=== PATIENT | female | born 1995 | race Caucasian/White ===

== ENCOUNTER 2017-01-24 18:22 | Emergency (ER) | payer OTHER ==
[~2017-01-24] VITALS: Ht 165.1 cm; Wt 51.0 kg
[2017-01-24 18:35] VITALS: Ht 165.1 cm; Wt 51.0 kg
[2017-01-24] MEDS ORDERED: ACETAMINOPHEN 500 MG TAB PO STA (20:09)
[2017-01-24] MEDS ORDERED: KETOROLAC 30 MG INJ IV STA (20:09)
[2017-01-24] MEDS ORDERED: ONDANSETRON 4 MG INJ IV STA (20:09)
[2017-01-24] MEDS ORDERED: SOD CHLORIDE 0.9% 1,000 ML IV STA (20:09)
[2017-01-24 20:47] LABS: ADD SCAN DIFF NO
[2017-01-24 20:50] LABS: BASOPHILS % 0.2 % (0.0-2.0); HEMATOCRIT 41.6 % (37.0-47.0); HEMOGLOBIN 13.4 g/dl (12.0-16.0); LYMPHOCYTES % 7.8 % (18.0-55.0); MEAN CORPUSCULAR HEMOGLOBIN 28.6 pg (29.0-33.0); MEAN CORPUSCULAR HGB CONC 32.2 g/dl (32.0-37.0); MEAN CORPUSCULAR VOLUME 88.7 fl (72.0-104.0); MEAN PLATELET VOLUME 9.9 fl (7.4-10.4); MONOCYTE # 0.8 10^3/ul (0.3-0.9); MONOCYTES % 6.4 % (0.0-13.0); NEUTROPHILS % 85.3 % (30.0-74.0); PLATELET COUNT 338 10^3/UL (140-415); RED BLOOD COUNT 4.69 10^6/ul (4.20-5.40); RED CELL DISTRIBUTION WIDTH 13.4 % (11.5-14.5); WHITE BLOOD COUNT 12.9 10^3/ul (4.8-10.8)
[2017-01-24] MEDS ORDERED: CEFTRIAXONE 1 GM/50 ML (PMX) 50 ML IVPB ONE (21:00)
[2017-01-24 21:03] LABS: ALBUMIN 4.9 g/dl (3.3-4.9)
[2017-01-24 21:04] LABS: POTASSIUM 4.1 mmol/L (3.5-5.1)
[2017-01-24 21:06] LABS: ALBUMIN/GLOBULIN RATIO 1.19; BILIRUBIN,INDIRECT 0.3 mg/dl (0-1.1); BILIRUBIN,TOTAL 0.3 mg/dl (0.2-1.3); CREATININE 0.7 mg/dl (0.44-1.00)
[2017-01-24 21:07] LABS: CALCIUM 10.3 mg/dl (8.4-10.2)
[2017-01-24 21:59] LABS: ADD UMIC YES; URINE BILIRUBIN (Dip) NEGATIVE (NEGATIVE); URINE BLOOD (Dip) 3+ (NEGATIVE); URINE COLOR LT. YELLOW (YELLOW); URINE GLUCOSE (Dip) NEGATIVE (NEGATIVE); URINE KETONES (Dip) TRACE (NEGATIVE); URINE LEUKOCYTE ESTERASE (Dip) 3+ (NEGATIVE); URINE NITRITE (Dip) POSITIVE (NEGATIVE); URINE TOTAL PROTEIN (Dip) TRACE (NEGATIVE); URINE UROBILINOGEN (Dip) 0.2 E.U./dL (0.1-1.0)
[2017-01-24 22:13] LABS: BACTERIA,URINE FEW; SQUAMOUS EPITHELIAL CELL,UR MODERATE
[2017-01-24] MEDS ORDERED: CEPH-443 PO (22:22)
[2017-01-24] MEDS ORDERED: IBUP-1542 PO (22:22)
[2017-01-24] MEDS ORDERED: PHEN-538 PO (22:22)
--- NOTE | 2017-01-24 22:22 | ERD ---
ER Documentation Chief Complaint Date/Time DATE: 01/24/17 Chief Complaint Right flank pain HPI The patient is a 21-year-old female who presents to the Emergency Department with complaint of right flank pain and dysuria. The patient reports that approximately one week ago she developed dysuria, urinary frequency, urgency hesitancy and hematuria. Several days later, the patient had onset of suprapubic abdominal pressure, which worsened upon urination. Due to her symptoms, the patient decided increase her oral intake. However, despite this, she continued to experience the urinary symptoms. Last night the patient developed right-sided flank pain, with associated nausea, and one episode of nonbilious, nonbloody emesis today. She denies any known fevers or chills. Denies diarrhea. Denies vaginal bleeding or new vaginal discharge. Last menstrual period was 01/17/2017. Denies history of similar symptoms in the past. ROS All systems reviewed and are negative except as per history of present illness. Medications Home Meds Active Scripts Ibuprofen* (Motrin*) 600 Mg Tab, 600 MG PO Q6, #30 TAB Prov:GUILLAUME BANEGAS PA-C 01/24/17 Phenazopyridine Hcl* (Pyridium*) 200 Mg Tab, 200 MG PO TID Y for URINARY PAIN for 2 Days, #6 TAB Prov:GUILLAUME BANEGAS PA-C 01/24/17 Cephalexin* (Keflex*) 500 Mg Capsule, 500 MG PO QID for 10 Days, CAP Prov:GUILLAUME BANEGAS PA-C 01/24/17 Allergies Allergies: Coded Allergies: No Known Allergy (Unverified , 01/24/17) PMhx/Soc Medical and Surgical Hx: pt denies Medical Hx, pt denies Surgical Hx Hx Alcohol Use: No Hx Substance Use: No Hx Tobacco Use: No Smoking Status: Never smoker Physical Exam Vitals Vital Signs Date Time Temp Pulse Resp B/P Pulse Ox O2 Delivery O2 Flow Rate FiO2 01/24/17 22:35 99.6 83 18 106/58 100 Room Air 01/24/17 18:35 100.3 110 20 158/100 100 Physical Exam GENERAL: Well-developed, well-nourished, female, in no acute distress. Nontoxic. Well-appearing. HEENT: Head is normocephalic, atraumatic. No scleral pallor or icterus. Pupils equal, round and reactive to light. Conjunctiva pink. Moist mucous membranes. Clear oropharynx. NECK: Supple. Full range of motion. RESPIRATORY: Lungs are clear to auscultation bilaterally. Equal breath sounds. Normal expiratory effort. CARDIOVASCULAR: Tachycardic. Regular rhythm. No murmurs. GASTROINTESTINAL: Abdomen is soft, non-tender, and non-distended. No guarding, no rebound tenderness. Normal bowel sounds. No tenderness at McBurney's point. FLANK: Right-sided CVA tenderness. No left-sided CVA tenderness. No masses. No swelling. No vesicles. BACK: No midline tenderness. EXTREMITIES: No clubbing, cyanosis, or edema. Normal skin perfusion. Moving all extremities. Muscle tone is normal. No focal swelling or erythema. NEUROLOGIC: The patient is alert, awake, and oriented x 3. Speech is normal. INTEGUMENT: Skin is intact. Warm and dry. No rashes, no petechiae present. PSYCHIATRIC: Cooperative; appropriate. Result Diagram: 01/24/17202801/24/172028 Results 24 hrs Laboratory Tests Test 01/24/17 20:29 01/24/17 21:45 White Blood Count 12.910^3/ul Red Blood Count 4.6910^6/ul Hemoglobin 13.4g/dl Hematocrit 41.6% Mean Corpuscular Volume 88.7fl Mean Corpuscular Hemoglobin 28.6pg Mean Corpuscular Hemoglobin Concent 32.2g/dl Red Cell Distribution Width 13.4% Platelet Count 56227^3/UL Mean Platelet Volume 9.9fl Neutrophils % 85.3% Lymphocytes % 7.8% Monocytes % 6.4% Eosinophils % 0.0% Basophils % 0.2% Nucleated Red Blood Cells % 0.0/100WBC Neutrophils # 11.010^3/ul Lymphocytes # 1.010^3/ul Monocytes # 0.810^3/ul Eosinophils # 0.010^3/ul Basophils # 0.010^3/ul Nucleated Red Blood Cells # 0.010^3/ul Sodium Level 143mmol/L Potassium Level 4.1mmol/L Chloride Level 100mmol/L Carbon Dioxide Level 26mmol/L Anion Gap 21 Blood Urea Nitrogen 14mg/dl Creatinine 0.70mg/dl Glucose Level 98mg/dl Calcium Level 10.3mg/dl Total Bilirubin 0.3mg/dl Direct Bilirubin 0.00mg/dl Indirect Bilirubin 0.3mg/dl Aspartate Amino Transf (AST/SGOT) 20IU/L Alanine Aminotransferase (ALT/SGPT) 17IU/L Alkaline Phosphatase 64IU/L Total Protein 9.0g/dl Albumin 4.9g/dl Globulin 4.10g/dl Albumin/Globulin Ratio 1.19 Lipase 101U/L Urine Color LT. YELLOW Urine Clarity HAZY Urine pH 6.0 Urine Specific Excel <=1.005 Urine Ketones TRACE Urine Nitrite POSITIVE Urine Bilirubin NEGATIVE Urine Urobilinogen 0.2 E.U./dL Urine Leukocyte Esterase 3+ Urine Microscopic RBC 5-10/HPF Urine Microscopic WBC >200/HPF Urine Squamous Epithelial Cells MODERATE Urine Calcium Oxalate Crystals FEW Urine Bacteria FEW Urine Hemoglobin 3+ Urine Glucose NEGATIVE% Urine Total Protein TRACE Current Medications Medications (Trade) Dose Ordered Sig/Angie Route PRN Reason Start Time Stop Time Status Last Admin Dose Admin Sodium Chloride (NS) 1,000 ml @ 1,000 mls/hr Q1H STAT IV 01/24/17 20:09 01/24/17 21:08 DC 01/24/17 20:41 Ondansetron HCl (Zofran Inj) 4 mg ONCE STAT IV 01/24/17 20:09 01/24/17 20:11 DC 01/24/17 20:41 Ketorolac Tromethamine (Toradol) 30 mg ONCE STAT IV 01/24/17 20:09 01/24/17 20:11 DC 01/24/17 20:41 Acetaminophen 1000 mg 1,000 mg ONCE STAT PO 01/24/17 20:09 01/24/17 20:11 DC 01/24/17 20:42 Ceftriaxone Sodium (Rocephin) 50 ml @ 100 mls/hr ONCE ONCE IVPB 01/24/17 21:00 01/24/17 21:29 DC 01/24/17 21:12 Procedures/MDM Emergency Department Course: The patient was stable throughout the ER course. IV access established by nursing staff. Laboratory work was performed. On reassessment, the patient was sitting comfortably with no signs of acute distress. Laboratory results were discussed with the patient, as well as likely diagnosis of pyelonephritis. She was given 1 g of Rocephin IV, and strict return precautions for signs of worsening condition. She stated she felt comfortable being discharged home with a trial of oral antibiotics. I also explained the importance of follow-up and she stated she will follow-up with her primary care physician. The patient was discharged home in fair condition. They were instructed to return to the emergency department at any time if there was any worsening of their condition. Medical Decision Making: This is a 21-year-old female presenting to the Emergency Department with dysuria, suprapubic abdominal discomfort urinary frequency and urgency for the past one weeks, and right flank pain for today. On physical examination, the patient had right-sided CVA tenderness. Otherwise, she was nontoxic in appearance, with no evidence of dehydration. The differential diagnosis includes, but is not limited to, urinary tract infection , renal abscess, perinephric abscess, urethritis, nephrolithiasis, salpingitis, cervicitis, pelvic inflammatory disease, diverticulitis, cystitis, cholecystitis , appendicitis, abdominal aortic aneurysm/dissection, pyelonephritis. Laboratory analysis leukocytosis of 12.9. No severe anemia requiring transfusion. Electrolytes are within normal limits, no indication for replacement. BUN/creatinine and creatinine are normal, no prerenal azotemia or acute kidney injury. No transaminitis. Urinalysis revealed positive nitrites, 3 + urine leukocyte esterace, 3+ urine hemoglobin, and > 200 WBCs, consistent with a urinary infection. Given that the patient presented with temperature of 100.3F, heart rate of 110 bpm, dysuria and CVA tenderness, patient's symptoms are most consistent with acute pyelonephritis. She was given an injection of 1 g of Rocephin. Urine culture sent. After rest, and administration of medications and serial evaluations, the patient reports no new complaints and resolved pain. She continues to remain stable and nontoxic, with no signs of distress. At this time, the patient is in stable condition, and therefore can be discharged home with a prescription for Keflex, Pyridium, and ibuprofen and strict return precautions for signs of deteriorating or worsening condition. The patient is advised to follow up with her primary care provider within 1-2 days for reevaluation and further management, or return to the ER sooner for any worsening symptoms. I shared my medical decision making and plan, and all laboratory results, with the patient at length and in great detail, and the patient verbally understands and agrees with the plan for further observation and care as an outpatient. At the time of discharge, all questions were answered. Departure Diagnosis: Primary Impression: Acute pyelonephritis Condition: Stable Patient Instructions: Pyelonephritis Additional Instructions: Call your primary care doctor TOMORROW for an appointment during the next 1-2 days.See the doctor sooner or return here if your condition worsens before your appointment time. GUILLAUME BANEGAS PA-C Jan 24, 2017 22:22
[2017-01-24 22:35] VITALS: BP 106/58; PULSE 83; RESP 18; TEMP 99.6
== END 2017-01-24 22:35 | disposition home or self-care (01) ==
LOC: FTE 18:22
DX: N10 Acute pyelonephritis (principal); R11.0 Nausea
CPT/HCPCS: 80053; 81001; 83690; 85025; 87086; J0696; J1885; J2405; J7030; 36415; 81003; 96374; 96375

== ENCOUNTER 2018-01-12 01:12 | Emergency (ER) | END 2018-01-12 08:42 | disposition home or self-care (01) ==